=== PATIENT | male | born 2000 | race Hispanic/Latino ===

== ENCOUNTER 2021-12-23 23:28 | Emergency (ER) | payer OTHER, SELFPAY ==
--- NOTE | ~2021-12-23 | CT_ITS ---
EXAMINATION: CTA brain carotid DATE: 12/24/2021 03:16 INDICATION: Dizziness. Blurry vision. TECHNIQUE: Computed tomographic angiography (CTA) of the head was performed without and with 100 mL O mnipaque 300 intravenous contrast. CTA of the neck was performed with intravenous contrast. Automated exposure control and iterative reconstruction technique were employed. The dose-length product was 1 858.04 mGy-cm. Maximum intensity projection and volume rendered 3D-reconstructions were created by eri matamoros technologist on a separate workstation. COMPARISON: None. FINDINGS: HEAD CTA: There is no intracranial hemorrhage, acute infarction, or abnormal intracranial mass lesion . The ventricles are normal in size. The orbits are normal. There is mucosal thickening in the parana rafi sinuses. The mastoid air cells are normal. Right vertebral artery is dominant. There is no signif icant stenosis of basilar artery or the posterior cerebral arteries. The posterior communicating dat anna are normal. There is no significant stenosis of the intracranial internal carotid arteries or an terior or middle cerebral arteries. Anterior communicating artery is normal. There is no aneurysm. NECK CTA: There are no pathologically enlarged lymph nodes. There is no significant stenosis of the v ertebral arteries. There is no visible plaque in the right internal carotid arteries. There is 0% dez nosis of the proximal right internal carotid artery relative to normal distal artery lumen diameter ( NASCET criteria). There is 0% stenosis of the proximal left internal carotid artery relative to kayla l distal artery lumen diameter. There is mild cervical spondylosis. IMPRESSION: 1. Normal brain. No aneurysm or significant intracranial arterial stenosis. 2. 0% stenosis of the proximal internal carotid arteries relative to normal distal artery lumen diame ters (NASCET criteria). Reviewed, dictated and finalized at location A. IMPRESSION: 1. Normal brain. No aneurysm or significant intracranial arterial stenosis. 2. 0% stenosis of the proximal internal carotid arteries relative to normal dis joo artery lumen diameters (NASCET criteria).
--- NOTE | ~2021-12-23 | XR_ITS ---
[XR ribs RT 2V w CXR 2V ] INDICATION: Right rib pain after trauma TECHNIQUE: Frontal projection of the upper right ribs, frontal projection of the lower right ribs, ob lique projection of all the right ribs, frontal inspiratory chest x-ray for interpretation. FINDINGS: There are no displaced rib fractures identified. There are no soft tissue abnormality see n. The lungs are clear. IMPRESSION: 1:No acute displaced rib fractures. Reviewed, dictated and finalized at location A.
[2021-12-24 00:25] VITALS: BP 164/89; PULSE 68; RESP 18; TEMP 36.6; O2SAT 100
[2021-12-24] MEDS: ONDANSETRON HCL ODT 4 MG TABLET PO (01:35)
[2021-12-24 01:43] LABS: Basophils Percent Auto 0.4 % (0.2-1.2); Eosinophils Absolute Auto 0.1 K/mm3 (0-0.3); Eosinophils Percent Auto 1.1 % (0-4.4); Hematocrit 46.8 % (42.0-52.0); Immature Granulocyte Absolute 0.02 K/mm3 (0.00-0.031); Immature Granulocyte Percent A 0.2 % (0-0.5); Lymphocytes Absolute Auto 2.75 K/mm3 (0.9-3.2); Lymphocytes Percent Auto 34.2 % (18.3-44.2); Mean Corpuscular HGB Conc 34.2 g/dl (32-36); Mean Corpuscular Hemoglobin 29.5 pg (26-34); Mean Corpuscular Volume 86.2 fl (80-100); Mean Platelet Volume 9.2 fl (7.4-10.4); Monocytes Absolute Auto 0.6 K/mm3 (0.1-0.6); Monocytes Percent Auto 7.6 % (2.6-8.5); Neutrophils Absolute Auto 4.6 K/mm3 (1.3-6.7); Neutrophils Percent Auto 56.5 % (45.5-73.1); Platelet Count Result 293 k/mm3 (150-375); Red Blood Count 5.43 M/mm3 (4.6-6.20); Red Cell Distribution Width 12.2 % (11.5-14.5); White Blood Count 8.1 K/mm3 (4.5-10.0)
[2021-12-24 01:55] LABS: Alanine Aminotransferase 26 U/L (6-50); Albumin Level 4.7 g/dL (3.5-5.1); Alkaline Phosphatase 75 U/L (38-126); Anion Gap 10 mmol/L (8-16); Aspartate Amino Transferase 33 U/L (17-59); Bilirubin,Total 0.5 mg/dL (0.2-1.3); Blood Urea Nitrogen 15 mg/dL (9-20); Calcium 9.2 mg/dL (8.4-10.2); Carbon Dioxide 24 mmol/L (22-30); Chloride 103 mmol/L (98-107); Estimated CRCL calculation 196 ml/min; Estimated Glomerular Filt Rate > 60; Glucose 86 mg/dL (65-110); Lipase 52 U/L (23-300); Potassium 3.9 mmol/L (3.4-5.0); Sodium 137 mmol/L (137-145)
[2021-12-24 02:46] VITALS: BP 156/84; PULSE 65; RESP 18; O2SAT 99
[2021-12-24] MEDS: MECLIZINE HCL 25 MG TABLET PO (02:46)
--- NOTE | 2021-12-24 04:20 | ED.NAVMDI ---
HPI - Nausea/Vomiting/Diarrhea General Chief complaint: Nausea/Vomiting/Diarrhea Stated complaint: nausea, H/A Time Seen by Provider: 12/24/21 00:52 History of Present Illness HPI Narrative: Patient is a 21-year-old male who presents ER with reports of nausea. Reports symptoms began yesterday morning. They have persisted. He reports prior to symptom onset he had had a fall off a platform at his work the night before. He was 7 feet in the air when he fell. He reports he landed on his right side. He had his arm bracing against his chest. He did not strike his head or lose consciousness. He denies any neck pain or back pain. He is having some pain and has ribs on the right side and the area of the mid axillary line and towards the back. No fevers or chills or sweats. No productive cough. He is having no abdominal pain or diarrhea. He takes no blood thinners. Related Data Allergies Allergy/AdvReac Type Severity Reaction Status Date / Time No Known Allergies Allergy Unverified 12/24/21 01:08 Review of Systems Review of Systems: All systems reviewed & are unremarkable except as noted in HPI and below Constitutional: Constitutional: Denies chills, Denies fatigue and Denies fever(s) ENT: Denies nasal congestion and Denies sore throat Comments: Rhinorrhea Cardiovascular: Cardiovascular: Denies chest pain, Denies rapid heart rate and Denies radiating jaw, neck or arm pain Respiratory: Respiratory: Denies cough and Denies dyspnea Gastrointestinal: Gastrointestinal: Denies abdominal pain, Reports nausea and Denies vomiting Musculoskeletal: Musculoskeletal: Denies back pain and Denies myalgias Comments: chest wall pain Neurologic: Reports dizziness, Denies syncope, Denies focal weakness and Denies numbness Exam Narrative: GENERAL: Well-appearing, well-nourished, and in no acute distress. HEAD: Normocephalic, atraumatic. EYES: PERRL and EOMI. ENT: Mucous membranes moist. TMs normal bilaterally. NECK: Supple. CHEST: Clear to auscultation. No respiratory distress. Abdomen is right lateral chest wall in the axillary region and and extending slightly towards the back. No bruising or swelling. HEART: Regular rate and rhythm. Normal peripheral pulses. ABDOMEN: Soft, nontender, nondistended. EXTREMITIES: Normal range of motion. No edema. SKIN: Warm, dry, no rash. NEURO: No focal deficits. Alert and oriented x3. Course Reevaluation(s) Reevaluation #1: Patient informed of x-ray results. He did receive Zofran for nausea. Labs unremarkable. Patient reporting that he still feels nauseous. He reports that in addition to his nausea that he feels slightly dizzy and that he has to focus more. He reports prior to his fall he did have some rhinorrhea but does not feel he is experiencing any additional congestion. He has no ringing in his ears or ear pressure. No history of vertigo. Will give meclizine to see if this helps his symptoms. Additionally we will perform a CTA of the head and neck to assess for vertebral arterial dissection. Time: 02:20 Reevaluation #2: Symptoms improved with meclizine. Informed of imaging results. Discharge home Date: 12/24/21 Time: 05:54 Vital Signs Vital signs: Vital Signs Temperature 97.9 F 12/24/21 00:25 Pulse Rate 68 12/24/21 00:25 Respiratory Rate 18 12/24/21 00:25 Blood Pressure 164/89 H 12/24/21 00:25 Pulse Oximetry 100 12/24/21 00:25 Oxygen Delivery Room Air 12/24/21 00:25 Temperature 97.9 F 12/24/21 00:25 Pulse Rate 65 12/24/21 05:04 Respiratory Rate 18 12/24/21 05:04 Blood Pressure 140/88 12/24/21 05:04 Pulse Oximetry 100 12/24/21 05:04 Oxygen Delivery Room Air 12/24/21 01:09 MDM - Nausea/Vomiting/Diarrhea Lab Data Result diagrams: 12/24/21 01:36 12/24/21 01:36 Labs: Lab Results 12/24/21 12/24/21 Range/Units 01:36 01:36 WBC 8.1 (4.5-10.0) K/mm3 RBC 5.43 (4.6-6.20) M/mm3 Hgb 16.0
[2021-12-24 05:04] VITALS: BP 140/88; PULSE 65; RESP 18; O2SAT 100
[2021-12-24 06:11] VITALS: BP 143/85; PULSE 67; RESP 18; O2SAT 100
== END 2021-12-24 06:12 | disposition home or self-care (01) ==
PROVIDERS: Emergency Provider Emergency Medicine
DX: R42 Dizziness and giddiness (principal); R07.89 Other chest pain
CPT/HCPCS: 36415; 70496; 70498; 71046; 71100; 80053; 83690; 85025; 99284; A9270; Q9967

== ENCOUNTER 2022-02-24 15:02 | Emergency (ER) | payer OTHER, SELFPAY ==
--- NOTE | ~2022-02-24 | XR_ITS ---
EXAMINATION: XR hip RT 2V w AP pelvis DATE: 02/24/2022 15:43 INDICATION: Hip pain. TECHNIQUE: An anteroposterior view of the pelvis and 2 views of right hip were obtained. COMPARISON: CT abdomen and pelvis 12/27/2017 FINDINGS: Bone alignment is normal. No fracture. Joint spaces are normal. IMPRESSION: 1. Normal pelvis and right hip. Reviewed, dictated and finalized at location A.
--- NOTE | ~2022-02-24 | XR_ITS ---
XR lumbar spine min 4V DATE: 02/24/2022 15:43 INDICATION: Back pain TECHNIQUE: AP, lateral, bilateral oblique views and coned lateral lumbosacral projection COMPARISON: None FINDINGS: Normal alignment of the lumbar spine. No fracture or bone destruction, spondylolysis or spo ndylolisthesis. Lumbar pedicles are intact. Lumbar and lumbosacral interspaces are well preserved. Th e sacroiliac joints are intact. IMPRESSION: No significant abnormality Reviewed, dictated and finalized at location B. IMPRESSION: No significant abnormality
[2022-02-24 15:03] VITALS: BP 141/74; PULSE 77; RESP 18; TEMP 37; O2SAT 100
--- NOTE | 2022-02-24 15:32 | PC.NURSE ---
Patient off unit to radiology.
[2022-02-24] MEDS: IBUPROFEN 600 MG TABLET PO (15:44)
--- NOTE | 2022-02-24 16:33 | ED.GENADULT ---
HPI - General Adult General Chief complaint: Extremity Injury, Lower Stated complaint: right hip pain Time Seen by Provider: 02/24/22 15:04 Source: RN notes reviewed History of Present Illness HPI narrative: Patient presents emergency department from home for right hip pain. Patient states that pain began 4 days ago pain is located in the right posterior hip and is worse when he flexes at the hip or bends over. He states that he has a history of falling approximately 7 feet back in December and landing on his back at that time he had had pain in his back and hip at have been evaluated with negative x-rays states the pain had resolved he denies any new trauma or injury recently denies any trauma or injury when the pain began 4 days ago he denies any radiation of the pain he denies any fevers or chills bowel or bladder incontinence abdominal pain numbness or tingling in the extremities or any other symptoms or concern patient does still feel a popping in the hip at times Related Data Allergies Allergy/AdvReac Type Severity Reaction Status Date / Time No Known Allergies Allergy Unverified 02/24/22 15:07 Review of Systems Review of Systems: Gen.: Denies fevers or chills Respiratory: Denies shortness of breath or cough CV: Denies chest pain or palpitations GI: Denies abdominal pain nausea, emesis or diarrhea denies incontinence Musculoskeletal: See HPI Neuro: Denies numbness, tingling, weakness or focal weakness Skin: Denies rash Except as documented, all other systems reviewed and negative [facility] Past Medical History Medical History (Updated 02/24/22 @ 16:39 by Sami Cruz DO) Patient denies significant medical history Social History Social History (Updated 02/24/22 @ 16:35 by Sami Cruz DO) Smoking status: Never smoker Exam Narrative: APPEARANCE: No acute distress, nontoxic, resting in bed Eyes: EOMI HEENT: Normocephalic, atraumatic, CV: Regular rate and rhythm without murmur RESPIRATORY: No respiratory distress. Clear to auscultation bilaterally. Abdomen: Soft and nontender, no rebound or guarding MUSCULOSKELETAl: Moves all extremities, no clubbing cyanosis or edema no tenderness over the lateral or anterior hip no tenderness of the knee or ankle right lower extremity neurovascular intact pain in the right posterior hip with flexion of the hip Back: No midline lumbar tenderness to palpation or step-off, tender to palpation over right posterior buttocks pain increased with forward flexion and flexion of the hip NEURO: Awake and alert. Following commands, speech normal, no focal deficits, muscle strength 5 out of 5 bilateral lower extremities, bilateral patellar reflex 2+ SKIN:: Warm, dry. Normal Color no rash or lesions Course Course Emergency Course: Discussed with patient results of workup and diagnosis. Discussed need for follow-up with primary care, proper use of medication, and reasons to return to the emergency department. Patient understands and agrees to current treatment plan Vital Signs Vital signs: Vital Signs Temperature 98.6 F 02/24/22 15:03 Pulse Rate 77 02/24/22 15:03 Respiratory Rate 18 02/24/22 15:03 Blood Pressure 141/74 H 02/24/22 15:03 Pulse Oximetry 100 02/24/22 15:03 Oxygen Delivery Room Air 02/24/22 15:03 Temperature 98.6 F 02/24/22 15:03 Pulse Rate 77 02/24/22 15:03 Respiratory Rate 18 02/24/22 15:03 Blood Pressure 141/74 H 02/24/22 15:03 Pulse Oximetry 100 02/24/22 15:03 Oxygen Delivery Room Air 02/24/22 15:03 Medical Decision Making MDM Narrative Medical decision making narrative: Patient?s pain is positional and localized to back without signs of cord compression or cauda equina. Normal nuerologic exams. No fever noted and no significant risk factors for osteomyelitis or spinal epidural abscess. No symptoms or signs to suggest pain is referred from abdominal or source. There are no pulsatile masses to exam. Patient ambulate
== END 2022-02-24 16:49 | disposition home or self-care (01) ==
PROVIDERS: Emergency Provider Emergency Medicine
DX: M25.551 Pain in right hip (principal)
CPT/HCPCS: 72110; 73502; 99284; A9270

== ENCOUNTER 2022-03-11 19:28 | Emergency (ER) | payer OTHER, SELFPAY ==
--- NOTE | ~2022-03-11 | US_ITS ---
EXAMINATION: US scrotum doppler DATE: 03/11/2022 21:02 INDICATION: Right testicular pain and swelling. TECHNIQUE: Grayscale and Doppler ultrasound images of the testes were obtained. COMPARISON: None. FINDINGS: The right testis measures 4.0 x 2.8 x 2.1 cm. The left testis measures 4.0 x 2.9 x 2.0 cm. There is bilateral testicular microlithiasis. There is normal vascular flow to both testes. The right epididymis is normal with normal vascular flow. The left epididymis is normal with normal vascular f low. There is no varicocele or hydrocele. IMPRESSION: 1. No etiology for the patient's symptoms. Reviewed, dictated and finalized at location A.
--- NOTE | ~2022-03-11 | CT_ITS ---
EXAMINATION: CT abdomen pelvis wo con DATE: 03/11/2022 21:40 INDICATION: Right lower quadrant abdominal pain. Right groin pain. TECHNIQUE: Computed tomography (CT) of the abdomen and pelvis was performed without intravenous contr ast. Automated exposure control and iterative reconstruction technique were employed. The dose-length product was 1493.73 mGy-cm. COMPARISON: CT abdomen and pelvis 12/27/2017 FINDINGS: The visualized portions of the lung bases demonstrate mild atelectasis on the right. No ple ural effusion. The heart size is normal. No pericardial effusion. The liver, gallbladder, spleen, colvin creas, adrenal glands, and kidneys are normal. There is no urolithiasis. There are no dilated loops o f bowel. There is fat stranding around an epiploic appendage of sigmoid colon, consistent with epiplo ic appendagitis. The appendix is normal. There are no pathologically enlarged lymph nodes. There is n o free intraperitoneal fluid. There is mild lumbar spondylosis. IMPRESSION: 1. Epiploic appendagitis of sigmoid colon. Reviewed, dictated and finalized at location A.
[2022-03-11 19:53] VITALS: BP 134/66; PULSE 73; RESP 18; TEMP 36.8; O2SAT 100
--- NOTE | 2022-03-11 20:41 | ED.MALEGU ---
HPI - Male Genitourinary General Chief complaint: Urogenital-Male Stated complaint: right sided groin pain x 6 days Time Seen by Provider: 03/11/22 20:35 Source: RN notes reviewed History of Present Illness HPI Narrative: Patient presents emergency department from home for right testicular and groin pain. Patient states pain has been ongoing for the past 6 days the pain is located in the right posterior testicle and the right groin does not radiate described as aching in nature nothing makes the pain better or worse he denies any fevers or chills abdominal pain nausea vomiting dysuria or any other symptoms denies any risk of sexually transmitted disease Related Data Allergies Allergy/AdvReac Type Severity Reaction Status Date / Time No Known Allergies Allergy Verified 03/11/22 19:55 Review of Systems Review of Systems: Gen.: Denies fevers or chills ENT: Denies congestion Respiratory: Denies shortness of breath CV: Denies chest pain GI: Denies abdominal pain nausea, emesis or diarrhea see HPI Musculoskeletal: Denies back pain or muscle pain Neuro: Denies numbness, tingling, weakness or focal weakness Skin: Denies rash Except as documented, all other systems reviewed and negative [facility] Past Medical History Medical History Patient denies significant medical history Social History Social History Smoking status: Never smoker Exam Narrative: APPEARANCE: No acute distress, nontoxic, resting in bed EYES: EOMI HEENT: Normocephalic, atraumatic, OMM RESPIRATORY: No respiratory distress Clear to auscultation bilaterally with no rhonchi wheezing or rales. CARDIOVASCULAR: Regular rate and rhythm without murmurs rubs or gallops. ABDOMINAL: Soft, nondistended palpation right lower quadrant no tenderness right upper quadrant, left lower quadrant left lower quadrant no rebound or guarding, no hernias palpated : Normal external exam uncircumcised male with no skin lesions no phimosis paraphimosis no scrotal swelling or erythema tender palpation of the right posterior testicle no hernia palpated MUSCULOSKELETAl: Moves all extremities. No clubbing, cyanosis or edema. NEURO: Awake and alert. Following commands, speech normal, no focal deficits SKIN:: Warm, dry. No rashes lesions or abrasions PSYCHIATRIC: Normal affect/mood, Course Course Emergency Course: Discussed with patient results of workup and diagnosis. Discussed need for follow-up with primary care, proper use of medication, and reasons to return to the emergency department. Patient understands and agrees to current treatment plan. Discussed with patient his pain in his right testicle with lower abdominal pain is pain radiating from his epiploic appendagitis discussed need for anti-inflammatories and follow-up Vital Signs Vital signs: Vital Signs Temperature 98.2 F 03/11/22 19:53 Pulse Rate 73 03/11/22 19:53 Respiratory Rate 18 03/11/22 19:53 Blood Pressure 134/66 03/11/22 19:53 Pulse Oximetry 100 03/11/22 19:53 Oxygen Delivery Room Air 03/11/22 19:53 Temperature 98.2 F 03/11/22 19:53 Pulse Rate 73 03/11/22 19:53 Respiratory Rate 18 03/11/22 19:53 Blood Pressure 134/66 03/11/22 19:53 Pulse Oximetry 100 03/11/22 19:53 Oxygen Delivery Room Air 03/11/22 19:53 MDM - Male Genitourinary Lab Data Labs: Lab Results 03/11/22 Range/Units 21:12 Urine Color Yellow (Yellow) Urine Appearance Clear (Clear) Urine pH 6.0 (5.0-9.0) Ur Specific [place] >= 1.030 (1.001-1.035) Urine Protein Negative (Negative) mg/dL Urine Glucose (UA) Negative (Negative) mg/dL Urine Ketones Negative (Negative) mg/dL Ur Blood (Man) Negative (Negative) Urine Nitrate Negative (Negative) Urine Bilirubin Negative (Negative) Urine Urobilinogen 0.2 (<2.0) mg/dL Leukocyte Esterase Rfl Negative (Negative
[2022-03-11 21:30] LABS: Appearance Urine Clear (Clear); Bilirubin Urine Negative (Negative); Blood Urine Negative (Negative); Color Urine Yellow (Yellow); Glucose Urine UA Negative (Negative); Ketones Urine Negative (Negative); Leukocyte Esterase Ur Negative LEU/UL (Negative); Nitrate Urine Negative (Negative); Protein Urine Negative (Negative); Specific Grav Ur >= 1.030 (1.001-1.035); Urobilinogen Urine 0.2 mg/dL (<2.0)
[2022-03-11 21:33] LABS: Mucus Urine Rare /lpf; WBC Urine 0-3 /hpf
[2022-03-11 21:36] LABS: Add Urine Microscopic? YES
[2022-03-11] MEDS: IBUPROFEN 600 MG TABLET PO (21:41)
[2022-03-11 22:36] VITALS: BP 132/68; PULSE 80; RESP 18; O2SAT 99
== END 2022-03-11 22:37 | disposition home or self-care (01) ==
PROVIDERS: Emergency Provider Emergency Medicine
DX: K63.89 Other specified diseases of intestine (principal)
CPT/HCPCS: 74176; 76870; 81001; 81003; 93976; 99284; A9270

== ENCOUNTER 2024-11-23 22:34 | Emergency (ER) | payer SELFPAY ==
[2024-11-23 22:36] VITALS: BP 127/100; PULSE 77; RESP 15; TEMP 36.1; O2SAT 100
--- OUTSIDE RECORDS SUMMARY | 2024-11-23 22:36 | XMS_ITS | Clinical Summary ---
Author Organization [facility] Care Team Providers Care Smasher Hand Name Role Phone Unavailable Primary Care Provider Unavailabl e Social History Tobacco Use Types Packs/Day Years Used Date Smoking Tobacco: Never Assessed Sex and Gender Information Value Date Recorded Sex Assigned at Not on file Legal Sex Male 8:04 AM CDT Gender Identity Not on file Sexual Orientation Not on file Plan of Treatment Health Maintenance Due Date Last Done Comments Hepatitis C Virus (HCV) Screening 2001 Meningococcal B Immunization (1 of 2 - Standard) 2017 Influenza Immunization (#1) 03/24/202403/2018, 04/23/2013, 09/04/2012, Additional history exists SARS-COV-2 Immunization ( season) 2024 12/26/2020, 11/28/2020 Respiratory Syncytial Virus (RSV) Immunization (Adult) (1 - 1-dose 75+ series) 02/18/2076 Hepatitis B Immunization Completed 002, 2001, 2001 Pneumococcal Immunization Combined Completed 03/05/2003, 2001, 2001 DTaP/Tdap/Td Immunization Discontinued 2010, 02/18/2005, 05/22/2002, Additional history exists TdaP Immunization Completed 07/28/2010 Human Papillomavirus (HPV) Immunization Completed 10/30/2013, 07/16/2013, 04/23/2013, Additional history exists Meningococcal Immunization (ACWY) Completed 05/01/2018, 04/23/2013 Rotavirus Immunization Aged Out No lo nger eligible based on patient's age to complete this topic
--- OUTSIDE RECORDS SUMMARY | 2024-11-23 22:36 | XMS_ITS | Clinical Summary ---
Author Organization [facility] Address [address] [place] [address] Care Team Providers Care Ham Pumper Name Role Phone [facility] Primary Care Provider Source Comments [facility],non-owned Affiliates and Associated Physician Practices is amultiple site organization consisting of ambulatory clinics and hospital sitesin [place], [place], [place] and [place]. This disclosure is being madepursuant to the Care Everywhere program and may not contain all information available regarding this patient. Last updated 18.[facility] Allergies No known active allergies Medications * Be aware that medications may not be up to date on this document. Alwaysverify current medications with the patient. acetaminophen (TYLENOL) 325 MG tablet Take 1 Tab by mouth every 4 hours as needed for Fever or Pain. Maximum allowable Acetaminophen amount = 4 Grams (4000 mg) / 24 hours. 50 Tab 0 3 Active ibuprofen (MOTRIN) 200 MG tablet Take 3 Tabs by mouth every 6 hours as needed for Pain. 0 3 Active Active Problems Problem Noted Date Diagnosed Date Abnormal LFTs 06/06/2018 Ingrown toenail 05/28/2013 Social History Tobacco Use Types Packs/Day Years Used Date Smoking Tobacco: Never Smokeless Tobacco: Never Sex and Gender Information Value Date Recorded Sex Assigned at Not on file Legal Sex Male 1:19 PM CDT Gender Identity Not on file Sexual Orientation Not on file Last Filed Vital Signs Vital Sign Reading Time Taken Comments Blood Pressure 130/82 06/08/2018 11:18 AM DRIVER GUIDE Pulse 91 06/10/2013 1:30 PM DRIVER GUIDE Temperature 36.2 C (97.2 F) 06/10/2013 1:30 PM DRIVER GUIDE Respiratory Rate 20 06/10/2013 1:30 PM DRIVER GUIDE Oxygen Saturation 96% 06/10/2013 1:30 PM DRIVER GUIDE Inhaled Oxygen Concentration - - Weight 152.3 kg (335 lb 12.2 oz) 2017 11:18 AM DRIVER GUIDE Height 178.5 cm (5' 10.28 ) 06/08/2018 11:18 AM DRIVER GUIDE Body Mass Index 47.8 06/08/2018 11:18 AM DRIVER GUIDE Plan of Treatment Health Maintenance Due Date Last Done Comments HIV SCREENING 02/18/2016 HPV VACCINE (1 - Male 3-dose series) 02/18/2016 MENINGOCOCCAL (Group B) VACC INE SHARED DECISION-MAKING (1 of 2 - Standard) 2017 HEPATITIS C SCREENING 02/13/2019 DTAP/TDAP/TD VACCINES (1 - Tdap) 02/18/2020 HEPATITIS B VACCINE (1 of 3 - 19+ 3-dose series) 02/18/2020 COVID-19 VACCINE (1 - 2023-2 5 season) 2024 DEPRESSION SCREENING 07/24/2024 INFLUENZA VACCINE (Season Ended) 2025 ZOSTER VACCINE (1 of 2) 2051 HIB VACCINE Aged Out No longer eligi ble based on patient's age to complete this topic MENINGOCOCCAL GROUPS A/C/Y/W VACCINE Aged Out No longer eligible b ased on patient's age to complete this topic PNEUMOCOCCAL VACCINE Aged Out No long er eligible based on patient's age to complete this topic [address] [place] [address] [place] - [place] [facility] [place] [facility] Care Teams Ham Pumper Relationship Specialty Start Date End Date [facility] [address] [place] [address] PCP - General 04/26/13
--- OUTSIDE RECORDS SUMMARY | 2024-11-24 00:13 | XMS_ITS | Clinical Summary ---
Author Organization [facility] Address [address] [place] [address] Care Team Providers Care Substitute Crossing Guard Name Role Phone [facility] Primary Care Provider Source Comments [facility],non-owned Affiliates and Associated Physician Practices is amultiple site organization consisting of ambulatory clinics and hospital sitesin [place], [place], [place] and [place]. This disclosure is being madepursuant to the Care Everywhere program and may not contain all information available regarding this patient. Last updated 18.[facility] Allergies No known active allergies Medications * [...] Comments Blood Pressure 130/82 06/08/2018 11:18 AM DIAL PAINTER Pulse 91 06/10/2013 1:30 PM DIAL PAINTER Temperature 36.2 C (97.2 F) 06/10/2013 1:30 PM DIAL PAINTER Respiratory Rate 20 06/10/2013 1:30 PM DIAL PAINTER Oxygen Saturation 96% 06/10/2013 1:30 PM DIAL PAINTER Inhaled Oxygen Concentration - - Weight 152.3 kg (335 lb 12.2 oz) 2017 11:18 AM DIAL PAINTER Height 178.5 cm (5' 10.28 ) 06/08/2018 11:18 AM DIAL PAINTER Body Mass Index 47.8 06/08/2018 11:18 AM DIAL PAINTER Plan of Treatment Health Maintenance Due Date [...] to complete this topic [address] [place] [address] [place] [facility] [place] [facility] Care Teams Substitute Crossing Guard Relationship Specialty Start Date End Date [facility] [address] [place] [address] PCP - General 04/26/13
--- OUTSIDE RECORDS SUMMARY | 2024-11-24 00:13 | XMS_ITS | Clinical Summary ---
Author Organization [facility] Care Team Providers Care Human Resources Trainer Name Role Phone Unavailable Primary Care Provider [...]
--- NOTE | 2024-11-24 00:48 | ED.URI ---
HPI - URI/Sore Throat General Chief Complaint: Upper Respiratory Infection Stated Complaint: R jaw pain Time Seen by Provider: 11/24/24 00:02 Source: patient Mode of arrival: ambulatory Limitations: no limitations History of Present Illness HPI Narrative: Patient is a 24-year-old male who presents the ED with report of URI symptoms. Patient reports he has been sick over the past couple of days with congestion, rhinorrhea, sore throat, mild cough, right-sided neck pain. Has not had anything for his symptoms. Denies CP, SOB, fevers. Denies difficulty breathing or swelling. Denies sick contacts. Related Data Allergies Allergy/AdvReac Type Severity Reaction Status Date / Time No Known Allergies Allergy Verified 11/23/24 22:35 Review of Systems Review of Systems: All systems reviewed & are unremarkable except as noted in HPI. All systems reviewed & are unremarkable except as noted in HPI and below PMFSH Past Medical History Medical History Patient denies significant medical history Social History Social History Smoking status: Never smoker Exam Narrative: GENERAL: Well appearing, obese with BMI of 37.7, non-toxic, in no acute distress. HEAD: Normocephalic, atraumatic. NECK: Mild palpable lymphadenopathy along right anterior cervical chain. Mildly tender to palpation. No posterior lymphadenopathy. ENT: TMs slightly erythematous but non bulging. No cerumen. No EAC swelling/redness. No tenderness to palpation of ear pinna. Mild posterior pharynx erythema. No tonsillar hypertrophy or exudate. Uvula midline and nonedematous. RESPIRATORY: Airway patent, respirations nonlabored. Clear to auscultation bilaterally, no rales, rhonchi, wheezing. No focal lung sounds. CARDIOVASCULAR: Regular rate and rhythm without murmurs, rubs, or gallops. MUSCULOSKELETAL: Moves all extremities. No gross deformities. SKIN: Warm, dry, normal color. NEURO: A&O X3. Speech clear. PSYCHIATRIC: Appropriate mood and affect. Normal interaction. Course Vital Signs Vital signs: Vital Signs Temperature 97 F L 11/23/24 22:36 Pulse Rate 77 11/23/24 22:36 Respiratory Rate 15 11/23/24 22:36 Blood Pressure 127/100 H 11/23/24 22:36 Pulse Oximetry 100 11/23/24 22:36 Oxygen Delivery Room Air 11/23/24 22:36 Temperature 97 F L 11/23/24 22:36 Pulse Rate 72 11/24/24 01:28 Respiratory Rate 15 11/24/24 01:28 Blood Pressure 136/96 H 11/24/24 01:28 Pulse Oximetry 100 11/24/24 01:28 Oxygen Delivery Room Air 11/24/24 01:23 MDM - URI/Sore Throat MDM Narrative Medical decision making narrative: Patient presented to ED with URI symptoms for the past couple of days, pain to right-sided neck. Vital signs stable. Patient afebrile. No signs of airway compromise or respiratory distress. Exam consistent with mild anterior cervical lymphadenopathy. Symptoms most consistent with viral URI. Testing for influenza, RSV, COVID, strep negative. Patient will be discharged at this time. Discussed supportive care, advised to continue [id number] cough and cold medicines for symptom relief as needed. Discussed return precautions. Discharged in stable condition. Medical Records Attestation: I reviewed the patient's medical records. Lab Data Attestation: I reviewed the patient's lab results. Labs: Lab Results 11/24/24 11/24/24 Range/Units 00:06 00:47 Influenza A (RT-PCR) Negative (Negative) Influenza B (RT-PCR) Negative (Negative) RSV (RT-PCR) Negative (Negative) SARS-CoV-2 RNA (RT-PCR) Negative (Negative) Group A Strep (PCR) Not detected (Negative) Discharge Plan Discharge Clinical Impression: Lymphadenopathy Upper respiratory infection Qualifiers: URI type: unspecified URI Qualified Code(s): J06.9 - Acute upper respiratory infection, unspecified Patient Disposition: Home Condition: Stable Instructions: Antibiotic Form, Lymphadenopathy (ED), Viral Syndrome (ED), Cold Symptoms (ED) Additional Instructions: Your testing for influenza, RSV, COVID, strep was negative. You likely have a viral upper respiratory infection. Continue Tylenol and ibuprofen as needed for discomfort. You may use warm compresses to neck/area of lymph node enlargement. Recommend [id number] cough and cold medicines for symptom relief, Delsym, Mucinex, DayQuil, NyQuil, Sudafed, Robitussin, TheraFlu. Follow with primary care doctor for further evaluation. Return to the ED if you experience worsening or severe swelling in throat, difficulty breathing or swallowing, chest pain, unable to keep down food or drink, severe pain, or any other symptoms of concern. Patient Language: Croatian Prescriptions: No Action cyclobenzaprine 10 mg tablet 10 mg PO TID PRN (Reason: muscle spasm) Qty: 8 0RF ibuprofen 600 mg tablet 600 mg PO TID PRN (Reason: pain) Qty: 14 0RF ibuprofen 600 mg tablet 600 mg PO TID PRN (Reason: pain) Qty: 14 0RF Follow-up/Referrals: PHYSICIAN,CASING FLUID [employer]ENDER [Primary Care Provider] - Jason Arguelles MD [Physician] - (PRIMARY CARE) Time of Disposition: 01:21
[2024-11-24 00:53] LABS: Influenza A QL RT-PCR Negative (Negative); Influenza B QL RT-PCR Negative (Negative); RSV RNA, RT-PCR Negative (Negative); SARS-CoV-2 RNA PCR Negative (Negative)
[2024-11-24 01:15] LABS: Strep Group A RT-PCR NOT DETECTED (Negative)
[2024-11-24 01:23] VITALS: O2SAT 98
[2024-11-24 01:28] VITALS: BP 136/96; PULSE 72; RESP 15; O2SAT 100
== END 2024-11-24 01:35 | disposition home or self-care (01) ==
PROVIDERS: Emergency Medicine; Emergency Provider Physician Assistant
DX: R59.1 Generalized enlarged lymph nodes (principal); J06.9 Acute upper respiratory infection, unspecified; Z20.822 Contact with and (suspected) exposure to COVID-19
CPT/HCPCS: 87637; 87651; 99283